=== PATIENT | male | born 1985 | race Caucasian/White ===

== ENCOUNTER 2019-12-13 04:35 | Day surgery (SDC) | payer OTHER ==
[2019-12-11 17:09] VITALS: BMI 29.0
[~2019-12-13 04:35] MED LIST: BUPIVACAINE HCL/PF 0.5% (5MG/ML) 10 ML VIAL NR ONE
[2019-12-13] MEDS ORDERED: BUPIVACAINE HCL 100 ML ONE (08:17)
--- NOTE | 2019-12-13 08:17 | HP ---
History & Physical Update - History History: No Change - Physical Physical: No Change - Assessment Assessment: No Change - Plan Plan: No Change
[2019-12-13] MEDS ORDERED: DEXAMETHASONE SOD PHOSPHATE/PF 10 MG/ML SDV ONE (08:22)
[2019-12-13] MEDS ORDERED: BUPIVACAINE HCL 200 ML ONE (08:23)
[2019-12-13] MEDS ORDERED: MIDAZOLAM HCL 2 MG/2 ML SINGLE DOSE VIAL ONE ×2 (08:24)
[2019-12-13] MEDS ORDERED: fentaNYL CITRATE 250 MCG/5 ML VIAL ONE (09:01)
[2019-12-13] MEDS ORDERED: PROPOFOL 20 ML ONE ×3 (09:02→09:24)
[2019-12-13] MEDS ORDERED: SUCCINYLCHOLINE CHLORIDE 200 MG/10 ML SYRINGE ONE (09:24)
[2019-12-13] MEDS ORDERED: ROCURONIUM BROMIDE 50 MG/5 ML SYRINGE ONE (09:24)
[2019-12-13] MEDS ORDERED: ceFAZolin 2 GRAM PREMIX BAG IVPB ONE (09:50)
[2019-12-13] MEDS ORDERED: oxyCODONE HCL 5 MG TABLET PO PRN ×2 (10:20→13:59)
[2019-12-13] MEDS ORDERED: ONDANSETRON 4 MG/2 ML VIAL IVPUSH PRN (10:20)
[2019-12-13] MEDS ORDERED: NEOSTIGMINE METHYLSULFATE 0.5 MG/ML - 10 ML MDV ONE (13:08)
[2019-12-13] MEDS ORDERED: GLYCOPYRROLATE 0.2 MG/1 ML VIAL ONE (13:08)
[2019-12-13] MEDS ORDERED: ACETAMINOPHEN 325 MG TABLET (FP) PO PRN (13:59)
--- NOTE | 2019-12-13 14:05 | OP ---
Operative Note - Note: Operative Date: 12/13/19 Pre-Operative Diagnosis: recurrent right inguinoscrotal hernia with obstruction Operation: robotic RIH repair with mesh and partial omentectomy Findings: rihght inguinoscrotal hernia - recurrent with incarcerated omentum possible large right hydrocele and atrophic right testicle Intraop consult - recommended OP f/u & w/u for hydrocele - requires trans scrotal procedure if surgery needed Implants: Progrip mesh Post-Operative Diagnosis: Same as Pre-op Surgeon: Seth Brown Hook And Eye Attacher: Twyla Clemens Anesthesia: General Specimens Removed: omentum Estimated Blood Loss (mls): 50 Operative Report Dictated: Yes
--- NOTE | 2019-12-13 14:25 | SURG ---
Surgery Flower Arranger Note Flower Arranger: Twyla Clemens PA-C Date of Service: 12/13/19 Diagnosis: recurrent right inguinoscrotal hernia with obstruction Procedure: robotic RIH repair with mesh and partial omentectomy I was present for the entirety of the operative procedure. For further detail, please refer to operative report. Visit type - Case Type Case Type: Scheduled - Emergency Emergency Visit: No - New patient This patient is new to me today: Yes Date on this admission: 12/13/19
[2019-12-13] MEDS: LACTATED RINGERS SOLUTION 1,000 ML IV SCH ×2 (18:40→22:36)
[2019-12-14 05:40] VITALS: TEMP 98.5
[2019-12-14] MEDS: LACTATED RINGERS SOLUTION 1,000 ML IV SCH (07:02)
--- NOTE | 2019-12-14 07:10 | OP ---
DATE OF OPERATION: 12/13/2019 PROCEDURE: Robotic-assisted laparoscopic right inguinal hernia repair with mesh and partial omentectomy. PREOPERATIVE DIAGNOSIS: Recurrent right inguinal hernia with chronically incarcerated omentum, rule out right hydrocele. POSTOPERATIVE DIAGNOSIS: Recurrent right inguinal hernia with chronically incarcerated omentum, rule out right hydrocele. SURGEON: Seth Brown MD EVENT SPECIALIST PRODUCT DEMONSTRATOR: ROSARIO Almaraz ANESTHESIA: General endotracheal. FINDINGS ON PROCEDURE: This is a 33-year-old male with history of a right inguinal hernia repair at age 8 who now presents with a right inguinal scrotal bulge that has been going on for 20 years. On physical exam, patient has a large inguinal scrotal hernia which was nonreducible so patient was advised robotic hernia repair, and consent was obtained after discussing the risks, benefits, and alternatives of the procedure. DESCRIPTION OF PROCEDURE: Patient was brought to the operating room and placed in supine position. General endotracheal anesthesia was administered. Both hands were tucked at the side. The abdomen was prepped and draped in the usual sterile fashion. Patient had a TAP block prior, so no local anesthesia was administered. The peritoneal cavity was entered using the Veress needle technique via an 8-mm supraumbilical incision using scalpel blade number 15. The pneumoperitoneum was established. The peritoneal cavity was entered using the 8-mm port followed by insertion of the 3-D laparoscope. The peritoneal cavity was carefully inspected and was noted to be free of inadvertent injury. Patient was then placed in steep Trendelenburg position. Incarcerated right inguinal hernia containing omentum was noted. Two 8-mm ports were inserted 8 cm away from the supraumbilical port on each side of the midline. The target organ was set, and the robotic arms were docked. A fenestrated bipolar was inserted at the left-sided port, and then an EndoWrist aarno connected to monopolar cautery was inserted at the right-sided port. The undersigned then scrubbed out to commence the console part of the procedure. Using the inferior epigastric artery as the landmark, the peritoneal peritoneum was incised at the level of the anterior superior iliac spine to enter the preperitoneal space. This dissection was carried down laterally towards the anterior superior iliac spine and medially to the underside of the symphysis pubis. Multiple attempts to reduce the omentum proved unsuccessful. So, the omentum was left in situ and the hernia sac was dissected to be isolated from other cord structures. During the encounter, the inferior epigastric artery was inadvertently transected and the bleeding was controlled using the fenestrated bipolar forceps. There was further dissection of the hernia sac done, and the hernia sac was entered to facilitate in the reduction of the omentum. When it was deemed that the omentum was nearly completely reduced, the right testicle in the scrotum was palpated and there was a residual cystic structure which was deemed to be a hydrocele. An intraoperative consult with the urology service was done, and the recommendation was to leave the possible hydrocele alone and will be addressed at a later time via a transscrotal hydrocelectomy. ON palpation of the right scrotum no clearly palpable right testicle was noted. The left testicle was noted to be intact. The vas deferens was isolated from the hernia sac. However, the remnants of the spermatic vessels were noted to have also been transected during the dissection of the hernia sac. The distal hernia sac was then transected, and further reduction of fat or the peritoneum or omentum was done until it was deemed to be nearly completely reduced. After this dissection, a 10 x 15 cm ProGrip mesh was deployed to cover the estimated right internal ring, the inguinal floor, and the femoral canal medially. After deployment was deemed satisfactory, the peritoneal incision or the peritoneal pocket was closed with a continuous absorbable V-Loc 2-0 suture. A large piece of omentum was noted to have been completely resected, so this omentum was extracted by initially undocking the robotic arms and switching the left-sided port to a 15- mm port, and a 15-mm endobag was inserted, and the omentectomy specimen was extracted after placing it in the endobag. The bleeding from the omentum was suctioned, and again the peritoneal cavity was carefully inspected, and it was noted to be free of active bleeding. The pneumoperitoneum was evacuated, and the ports were removed. The wounds were closed with 1 [id number] Vicryl 0 suture for the fascia of the left-sided port and subcuticular Biosyn 4-0 suture for the skin. The wound closure was reinforced with Dermabond. The scrotal support was then applied. Patient was successfully extubated and transferred to the postanesthesia care unit in satisfactory condition. Estimated blood loss was about 50 mL. Wound class clean. The patient received 2 g of Ancef prior to the start of the procedure. Addendum: patient admitted to have right orchiectomy at the time of initial RIH repair at 8 years of age. Katerin [id number] MTDD
[2019-12-14 07:27] LABS: HEMATOCRIT 38.4 % (35.4-49); HEMOGLOBIN 13.1 GM/dL (11.7-16.9); MCH 29.1 pg (25.7-33.7); MCHC 34.2 g/dl (32.0-35.9); PLATELET COUNT 174 K/MM3 (134-434); RBC 4.51 M/mm3 (4.00-5.60); RDW 13.2 % (11.9-15.9); WHITE BLOOD COUNT 14.3 K/mm3 (4.0-10.0)
[2019-12-14 07:52] LABS: ALBUMIN 3.3 g/dl (3.4-5.0); BILIRUBIN,TOTAL 0.7 mg/dL (0.2-1); BLOOD UREA NITROGEN 18.7 mg/dL (7-18); CALCIUM 8.4 mg/dL (8.5-10.1); CREATININE 0.8 mg/dL (0.55-1.3); POTASSIUM 4.2 mmol/L (3.5-5.1)
[2019-12-14 12:37] VITALS: BP 129/82; PULSE 85
--- NOTE | 2019-12-17 16:19 | PATH ---
Surgical Pathology Report Patient Name: MARILU MEHTA [facility]. Rec. #: [id number] /Age/Gender: 1985 (Age: 33) / M Account: [id number] Location: AMBULATORY SURG Taken: 12/13/2019 Received: 12/16/2019 Reported: 12/17/2019 Physicians: Seth Brown M.D. Specimen(s) Received OMENTUM Clinical History Right recurrent inguinal hernia Final Diagnosis PARTIAL OMENTUM, OMENTECTOMY, RIGHT INGUINAL HERNIA REPAIR: BENIGN OMENTAL ADIPOSE TISSUE. FIBROCONNECTIVE AND FIBROADIPOSE TISSUE COMPATIBLE WITH HERNIA SAC. Electronically Signed Mami Baker M.D. Gross Description Received in formalin labeled "partial omentum," is an 8.5 x 7.0 x 1.5 cm aggregate of yellow, lobulated adipose tissue. There is brown short fibromembranous tissue identified within the container, consistent with a hernia sac. Sinker Winder sections are submitted in one cassette. /12/16/2019 [facility]/12/16/2019
== END 2019-12-14 13:00 | disposition home or self-care (01) ==
LOC: JASUSAT 04:35 → JASU-SURG 04:35 → J8W 18:11 → JASUSAT 12-14 13:00
PROVIDERS: ATTEND Surgery
PROC: 8E0W4CZ Robotic Assisted Procedure of Trunk Region, Percutaneous Endoscopic Approach (ICD-10-PCS; 2019-12-13)
PROC: 0YU54JZ Supplement Right Inguinal Region with Synthetic Substitute, Percutaneous Endoscopic Approach (ICD-10-PCS; principal; 2019-12-13 09:30)
DX: K40.31 Unilateral inguinal hernia, with obstruction, without gangrene, recurrent (principal)
CPT/HCPCS: 49651; S2900; 36415; 80053; 85027; 88305-TC; 94760

== ENCOUNTER 2020-11-06 05:32 | Day surgery (SDC) | payer OTHER ==
[2020-11-04 12:32] VITALS: BMI 30.2
[2020-11-06] MEDS ORDERED: DEXMEDETOMIDINE HCL 200 MCG/2 ML IVPB ONE (09:52)
[2020-11-06] MEDS ORDERED: LIDOCAINE HCL/PF 2% SDV 5ML VIAL ONE (10:03)
[2020-11-06] MEDS ORDERED: ePHEDrine SULFATE 50 MG/1 ML AMPULE ONE (10:04)
[2020-11-06] MEDS ORDERED: MIDAZOLAM HCL 2 MG/2 ML SINGLE DOSE VIAL ONE (10:05)
[2020-11-06] MEDS ORDERED: PROPOFOL 20 ML ONE ×3 (10:05→10:25)
[2020-11-06] MEDS ORDERED: fentaNYL CITRATE 250 MCG/5 ML VIAL ONE (10:21)
[2020-11-06] MEDS ORDERED: ROCURONIUM BROMIDE 50 MG/5 ML SYRINGE ONE (10:21)
[2020-11-06] MEDS ORDERED: ceFAZolin SODIUM 1 GM VIAL IVPB ONE (10:46)
[2020-11-06] MEDS ORDERED: BUPIVACAINE HCL/PF 0.25% (2.5MG/ML) 10 ML VIAL ONE (11:18)
[2020-11-06] MEDS ORDERED: BUPIVACAINE HCL 50 ML ONE (11:18)
[2020-11-06] MEDS ORDERED: ceFAZolin SODIUM 1 GM VIAL ONE (11:20)
[2020-11-06] MEDS ORDERED: DEXAMETHASONE SOD PHOSPHATE 4 MG/1 ML VIAL ONE (11:20)
[2020-11-06] MEDS ORDERED: NEOSTIGMINE METHYLSULFATE 0.5 MG/ML - 10 ML MDV ONE (11:20)
[2020-11-06] MEDS ORDERED: KETOROLAC TROMETHAMINE 30 MG/1 ML VIAL ONE (11:20)
[2020-11-06] MEDS ORDERED: GLYCOPYRROLATE 0.2 MG/1 ML VIAL ONE (11:20)
[2020-11-06] MEDS ORDERED: BUPIVACAINE HCL/PF 0.5% (5MG/ML) 10 ML VIAL NR ONE (11:25)
[2020-11-06] MEDS ORDERED: oxyCODONE HCL 5 MG TABLET PO PRN (11:59)
[2020-11-06] MEDS ORDERED: ONDANSETRON 4 MG/2 ML VIAL IVPUSH PRN (11:59)
[2020-11-06] MEDS ORDERED: PROMETHAZINE HCL 25 MG/1 ML VIAL IVPUSH PRN (11:59)
[2020-11-06] MEDS: oxyCODONE HCL 5 MG TABLET PO PRN ×2 (12:00→13:45)
[2020-11-06] MEDS ORDERED: oxyCODONE HCL 5 MG TABLET ONE (13:57)
[2020-11-06 18:04] VITALS: BP 108/60; PULSE 68; TEMP 97.8
== END 2020-11-06 15:30 | disposition home or self-care (01) ==
LOC: JASU-SURG 05:32
PROVIDERS: ATTEND Urology
PROC: 0VBJ0ZZ Excision of Right Epididymis, Open Approach (ICD-10-PCS; 2020-11-06)
PROC: 0VB70ZZ Excision of Left Tunica Vaginalis, Open Approach (ICD-10-PCS; principal; 2020-11-06 10:00)
DX: N43.3 Hydrocele, unspecified (principal); D29.21 Benign neoplasm of right testis
CPT/HCPCS: 87070; 87075; 87205; 88108; 88305-TC; 88307-TC; 94760